=== PATIENT | female | born 1965 | race Caucasian/White ===

== ENCOUNTER 2016-07-15 03:21 | Emergency (ER) ==
[2016-07-15] MEDS ORDERED: ZOFRAN 4 MG/2 ML IVP STA (03:31)
[2016-07-15] MEDS ORDERED: SODIUM CHLORIDE 1,000 ML IV STA ×2 (03:31)
[2016-07-15] MEDS ORDERED: MORPHINE 2 MG/ML SYRINGE IVP STA (03:31)
[2016-07-15 03:35] VITALS: BP 122/77; TEMP 97.4; BMI 32.2
[2016-07-15 03:50] LABS: BASOPHILS # (AUTO) 0.1 K/uL (0-0.2); BASOPHILS % (AUTO) 0.4 % (0.0-3.0); EOSINOPHILS # (AUTO) 0.1 K/ul (0.0-0.7); EOSINOPHILS % (AUTO) 0.8 % (0.0-7.0); HEMATOCRIT 42.1 % (37.0-47.0); IMMATURE GRANULOCYTE % (AUTO) 0.4 % (0.0-5.0); LYMPHOCYTES # (AUTO) 0.7 K/uL (0.60-3.4); LYMPHOCYTES % (AUTO) 4.5 (10.0-50.0); MEAN CORPUSCULAR HEMOGLOBIN 28.6 pg (27.0-31.0); MEAN CORPUSCULAR HGB CONC 33.3 (31.8-35.4); MEAN CORPUSCULAR VOLUME 86.1 fl (81.0-99.0); MONOCYTES # (AUTO) 0.4 K/uL (0.4-2.0); MONOCYTES % (AUTO) 2.8 (0-10); NEUTROPHILS # (AUTO) 13.3 K/ul (2.0-6.9); NEUTROPHILS % (AUTO) 91.1; PLATELET COUNT 298 10^3/uL (140-440); RED BLOOD COUNT 4.89 10^6/ul (4.20-5.40); WHITE BLOOD COUNT 14.59 K/ul (4.6-10.2)
[2016-07-15 04:08] LABS: FLU INTERNAL QC INTERNAL QC VALID; RAPID FLU A NEGATIVE (NEGATIVE); RAPID FLU B NEGATIVE (NEGATIVE)
[2016-07-15 04:13] LABS: ALBUMIN 4.2 g/dL (3.4-5.0); ALBUMIN/GLOBULIN RATIO 1.27; ANION GAP 15.5; BILIRUBIN,TOTAL 0.63 mg/dL (0.00-1.20); BUN/CREATININE RATIO 17.64; CALCIUM 9.4 mg/dL (8.2-10.2); CREATININE 0.85 mg/dL (0.60-1.30); POTASSIUM 3.5 mmol/L (3.5-5.10); TOTAL PROTEIN 7.5 g/dL (6.4-8.2)
[2016-07-15 05:39] LABS: BILIRUBIN,URINE 1+ (NEGATIVE); KETONES,URINE 2+ (NEGATIVE); LEUKOCYTE ESTERASE ,URINE Negative (NEGATIVE); NITRITE,URINE Negative (NEGATIVE); PH,URINE 6.5 (5-9); PROTEIN,URINE 1+ (NEGATIVE); URINE, BLOOD Negative (NEGATIVE)
[2016-07-15 05:40] LABS: ADD URINE MICROSCOPIC YES
--- NOTE | 2016-07-15 06:42 | ED.PDOC ---
General ED Provider: Dr. GREG NIXON-ER Chief Complaint: Nausea/Vomiting Stated Complaint: im having vomiting and diarrhea Time Seen by Physician: 03:30 Mode of Arrival: Wheelchair Information Source: Patient Exam Limitations: No limitations Primary Care Provider: LEDY RAZO Nursing and Triage Documentation Reviewed and Agree: Yes GI Complaint Exam - Vomiting/Diarrhea Complaint/Exam Onset/Duration: 24hrs Symptoms Are: Still present Episodes of Vomiting over last 24 Hours: 6 Episodes of Diarrhea Over Last 24 Hours: 5 Initial Severity: Mild Current Severity: Mild Character of Vomiting: Reports: Non-bilious Character of Diarrhea: Reports: Watery Aggravating: Reports: None Alleviating: Reports: None Associated Signs and Symptoms: Reports: Abdominal pain, Cramping Recent Positive Test: No Use of Depoprovera: No Compliant With Contraceptive Use: No Non-GI Risk Factors: Reports: None Surgical Obstruction Risk Factors: Reports: None Related Surgical History: Reports: Gastric Bypass Abdominal Findings: Present: None Kussmaul Respirations Present: No Differential Diagnoses: Dehydration, Viral Gastroenteritis, Bacterial Gastroenteritis Review of Systems - Review Of Systems Constitutional: Reports: No symptoms Eyes: Reports: No symptoms Ears, Nose, Mouth, Throat: Reports: No symptoms Respiratory: Reports: No symptoms Cardiac: Reports: No symptoms GI: Reports: Diarrhea, Nausea, Vomiting : Reports: No symptoms Musculoskeletal: Reports: No symptoms Skin: Reports: No symptoms Neurological: Reports: No symptoms Endocrine: Reports: No symptoms Hematologic/Lymphatic: Reports: No symptoms All Other Systems: Reviewed and Negative Past Medical History - Past Medical History Endocrine: Reports: Unknown Cardiovascular: Reports: Unknown Respiratory: Reports: Unknown Hematological: Reports: Unknown Gastrointestinal: Reports: Unknown Genitourinary: Reports: Unknown Neuro/Psych: Reports: Unknown Musculoskeletal: Reports: Unknown Cancer: Reports: Unknown Last Menstrual Period: PT HAS HAD A HYSTERECTOMY - Surgical History General Surgical History: Reports: Unknown - Family History Family History: Reports: Unknown - Social History Smoking Status: Never smoker Hx Substance Use: No Alcohol Screening: Occasionally Lives: With family - Immunizations Tetanus Shot up to Date: (UNKNOWN) Physical Exam - Physical Exam Appearance: Well-appearing, No pain distress, Well-nourished Pain Distress: Mild Eyes: BONY, EOMI, Conjunctiva clear ENT: Ears normal, Nose normal, Oropharynx normal Neck: Supple Respiratory: Airway patent Cardiovascular: RRR, Pulses normal, No rub, No murmur GI/: Soft, Nontender, No masses, Bowel sounds normal, No Organomegaly Musculoskeletal: Normal strength, ROM intact, No edema, No calf tenderness Skin: Warm, Dry, Normal color Neurological: Sensation intact, Motor intact, Reflexes intact, Cranial nerves intact, Alert, Oriented Psychiatric: Affect appropriate, Mood appropriate Interpretation - Radiology Interpretation Radiology Interpretation By: Radiologist Radiology Results: Negative Exam Interpreted: CT Scan Re-Evaluation - Re-Evaluation Time of Re-Evaluation: 06:41 Status: Improved Vital Signs Stable: Yes Pain Level: 0 Appearance: NAD (0) Lungs: Clear Skin: Warm and Dry Neuro: Alert and Oriented X3 CV: RRR Critical Care Note - Critical Care Note Total Time (mins): 0 Course - Course Hematology/Chemistry: 07/15/16 03:40 07/15/16 03:40 Orders, Labs, Meds: Lab Review 07/15/16 07/15/16 03:40 05:30 WBC 14.59 H RBC 4.89 Hgb 14.0 Hct 42.1 MCV 86.1 MCH 28.6 MCHC 33.3 RDW Coeff of Tae 14.5 Plt Count 298 Immature Gran % (Auto) 0.4 Neut % (Auto) 91.1 Lymph % (Auto) 4.5 L Garden % (Auto) 2.8 Eos % (Auto) 0.8 Baso % (Auto) 0.4 Immature Gran # (Auto) 0.1 Neut # 13.3 H Lymph # 0.7 Garden # 0.4 Eos # 0.1 Baso # 0.1 Sodium 141 Potassium 3.5 Chloride 105 Carbon Dioxide 24 Anion Gap 15.5 BUN 15 Creatinine 0.85 Estimated GFR (MDRD) 71.00 BUN/Creatinine Ratio 17.64 Glucose 144 H Calcium 9.4 Total Bilirubin 0.63 AST 37 ALT 38 Alkaline Phosphatase 120 H Total Protein 7.5 Albumin 4.2 Globulin 3.3 Albumin/Globulin Ratio 1.27 Amylase 35 Lipase 12 Urine Color Mary Urine Clarity Clear Urine pH 6.5 Ur Specific Colman 1.020 Urine Protein 1+ Urine Glucose (UA) Negative Urine Ketones 2+ Urine Blood Negative Urine Nitrite Negative Urine Bilirubin 1+ Urine Urobilinogen 0.2 Ur Leukocyte Esterase Negative Urine Microscopic RBC 0-2 Ur Squamous Epith Cells 20-30 Amorphous Sediment 1+ Hyaline Casts 2-5 Urine Mucus Trace Influenza A (Rapid) Negative Influenza B (Rapid) Negative Orders Category Date Time Status EKG-(ED ONLY) Stat CARDIO 07/15/16 03:30 Completed IV [ED IV/MEDIPORT/POWERPORT] .ONCE EMERGENCY 07/15/16 03:31 Active AMYLASE Stat LAB 07/15/16 03:40 Completed CBC W/ AUTO DIFF Stat LAB 07/15/16 03:40 Completed COMPREHENSIVE METABOLIC PANEL Stat LAB 07/15/16 03:40 Completed LIPASE Stat LAB 07/15/16 03:40 Completed MOLECULAR GROUP A STREP Stat LAB 07/15/16 03:40 Results RAPID FLU A/B Stat LAB 07/15/16 03:40 Completed STREP SCREEN Stat LAB 07/15/16 03:40 Results URINALYSIS C & S IF INDICATED Stat LAB 07/15/16 05:30 Completed 0.9 % Sodium Chloride [Saline Flush] MEDS 07/15/16 03:31 Ordered 1 syr IVF PRN PRN Morphine Sulfate [Morphine 2 mg/ml Syringe] MEDS 07/15/16 03:31 Discontinued 2 mg IVP ONCE STA Ondansetron HCl/Pf [Zofran 4 mg/2 ml] MEDS 07/15/16 03:31 Discontinued 4 mg IVP ONCE STA Sodium Chloride 0.9% [Sodium Chloride] 1,000 ml MEDS 07/15/16 03:31 Discontinued IV BOLUS Sodium Chloride 0.9% [Sodium Chloride] 1,000 ml MEDS 07/15/16 03:[address] ABDOMEN/PELVIS WO CONTRAST Stat RADS 07/15/16 03:31 Taken Medications Generic Name Dose Route Start Last Admin Trade Name Freq PRN Reason Stop Dose Admin Sodium Chloride 1 syr 07/15/16 03:31 07/15/16 04:15 Saline Flush IVF 1 syr PRN PRN Administration To flush IV Discontinued Medications Generic Name Dose Route Start Last Admin Trade Name Freq PRN Reason Stop Dose Admin Sodium Chloride 1,000 mls @ 1,000 mls/hr 07/15/16 03:31 07/15/16 04:14 Sodium Chloride IV 07/15/16 04:30 1,000 mls/hr BOLUS STA Administration Sodium Chloride 1,000 mls @ 1,000 mls/hr 07/15/16 03:31 07/15/16 05:35 Sodium Chloride IV 07/15/16 04:30 1,000 mls/hr BOLUS STA Administration Morphine Sulfate 2 mg 07/15/16 03:31 07/15/16 04:17 Morphine 2 Mg/Ml Syringe IVP 07/15/16 03:32 2 mg ONCE STA Administration Ondansetron HCl 4 mg 07/15/16 03:31 07/15/16 04:16 Zofran 4 Mg/2 Ml IVP 07/15/16 03:32 4 mg ONCE STA Administration Vital Signs: Temp Pulse Resp BP Pulse Ox 07/15/16 03:28 97.4 F L 67 24 122/77 100 Departure - Departure Time of Disposition: 06:42 Disposition: HOME SELF-CARE Discharge Problem: Gastroenteritis Instructions: Gastroenteritis (ED) Condition: Good Pt referred to PMD for follow-up: Yes Additional Instructions: clear liquids and advance--return prn Allergies/Adverse Reactions: Allergies Sulfa (Sulfonamide Antibiotics) Adverse Reaction (Verified 07/15/16 03:36) Home Medications: Ambulatory Orders Albuterol Sulfate 5 mg IH PRN PRN 07/11/14 Levothyroxine Sodium [Synthroid] 25 mcg PO QDAC 07/11/14 Losartan Potassium [Cozaar] 25 mg PO DAILY 07/11/14 Triamterene/Hydrochlorothiazid [Maxzide 37.5 mg-25 mg Tablet] 1 each PO DAILYWM 07/11/14 Venlafaxine HCl [Venlafaxine HCl ER] 150 mg PO DAILY 07/11/14 Disposition Discussed With: Patient, Family
--- NOTE | 2016-07-16 10:46 | CT ---
EXAM: CT of the abdomen and pelvis without contrast. HISTORY: Vomiting and diarrhea. History of gastric sleeve in February 2016. PROCEDURE: Contiguous axial CT images of the abdomen and pelvis without contrast with coronal and s agittal reformats. FINDINGS: The liver is normal in appearance. The gallbladder is surgically absent. The pancreas, spleen, right adrenal gland and kidneys are normal in appearance. There is a stable 3.2 cm left adr enal nodule compared with CT of 07/11/2014. The abdominal aorta is normal in appearance. There are operative changes involving the stomach. The appendix is normal in appearance. There is a mobile c ecum positioned in the right mid abdomen. There is diverticulosis of the colon with no evidence of d iverticulitis. No bowel obstruction. No free fluid or free air in the abdomen or pelvis. The bladd er is minimally filled with no abnormality identified. The bony structures and soft tissues are unr emarkable. Impression: Diverticulosis of the colon without diverticulitis. Mobile cecum as described. Operative changes as described. Stable 3.2 cm left adrenal nodule.
== END 2016-07-15 06:49 | disposition home or self-care (01) ==
LOC: ED 03:21
DX: K52.9 Noninfective gastroenteritis and colitis, unspecified (principal); Z98.84 Bariatric surgery status; Z79.899 Other long term (current) drug therapy
CPT/HCPCS: 36415; 80053; 81001; 82150; 83690; 85025; 87651; 87804; 87880; 93005; 93010; 96361; 96374; 96375; 99283

== ENCOUNTER 2017-07-22 09:49 | Outpatient (CLI) | payer OTHER ==
--- NOTE | 2017-07-22 10:11 | DI ---
Exam: Left thumb three-view. HISTORY: Left thumb pain. Findings/impressions: Three images of the left thumb demonstrate no evidence of acute fracture or di slocation. There is no osseous erosion or radiodense foreign body. Mild degenerative findings are n oted at the first carpal metacarpal articulation. No soft tissue swelling is identified.
== END 2017-07-22 09:50 | disposition home or self-care (01) ==
LOC: RAD 09:49
PROVIDERS: ATTEND Family Medicine
DX: M79.645 Pain in left finger(s) (principal)